=== PATIENT | female | born 1955 | race Caucasian/White ===

== ENCOUNTER 2018-04-11 14:21 | Inpatient (IN) | payer SELFPAY ==
[2018-04-11] MEDS ORDERED: NS 1,000 ML IV ONE (14:42)
[2018-04-11] MEDS ORDERED: ASPIRIN 81 MG CHEWABLE TAB PO ONE (14:42)
--- NOTE | 2018-04-11 14:47 | EDPHY ---
H & P Stated Complaint: dizziness, chest and throat tightness, Source: Patient Exam Limitations: No limitations - Medical/Surgical History Other PMH: pacemaker for bradycardia, - Family History Significant Family History: No pertinent family hx - Social History Alcohol Use: None Drug Use: None Time Seen by Provider: 04/11/18 14:30 HPI/ROS: This patient describes chest tightness currently 7/10 in intensity present for the past hour. Symptoms came on at rest. This is substernal location nonradiating associated with mild dyspnea. She also describes some intermittent heart palpitations and lightheadedness. She explains that she flew here from [place] 2 days ago while in the airport had a brief episode of chest tightness lightheadedness that brought her to her knees but then resolved without intervention. She had fleeting episodes of similar symptoms without lightheadedness until today when she had recurrent episode of presyncopal symptoms associated with heart palpitations and chest discomfort. 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 She contacted her gypsum roofer in [place] who was able apparently to interrogate the pacer & did notice any obvious malfunction but raised up potential concern over 1 of the leads per patient. Her gypsum roofer instructed the patient to come to the ED for evaluation. She arrived by private car. ROS: Constitutional: No fevers or chills HEENT: No URI symptoms Pulmonary: Dyspnea. No cough. Cardiovascular: Lightheadedness with no leg swelling GI: No abdominal pain. No nausea vomiting. Endocrine: No diaphoresis Neuro: No focal symptoms 10 point review of symptoms is performed and otherwise negative with exception of pertinent positives and negatives listed in HPI and ROS (Marcos Jackman) - Physical Exam Exam: General Appearance: Alert, no distress. Eyes: Pupils equal and round no pallor or injection. ENT, Mouth: Mucous membranes moist. Respiratory: There are no retractions, lungs are clear to auscultation. Cardiovascular: Irregularly irregular initially with no murmur gallop or rub appreciated. No peripheral edema Gastrointestinal: Abdomen is soft and nontender, no masses, bowel sounds normal. Neurological: GCS 15. Skin: Warm and dry, no rashes. Musculoskeletal: Neck is supple nontender. Extremities are symmetrical, full range of motion. Psychiatric: Mood and affect normal DIFFERENTIAL DIAGNOSIS: After history and physical exam differential diagnosis was considered for pacer dysfunction, myocardial ischemia, metabolic abnormality , pulmonary embolism (Marcos Jackman) Constitutional: Initial Vital Signs Temperature (C) 36.6 C 04/11/18 14:30 Heart Rate 60 04/11/18 14:30 Respiratory Rate 16 04/11/18 14:30 Blood Pressure 105/67 04/11/18 14:30 O2 Delivery Mode Room Air Allergies/Adverse Reactions: No Known Allergies Allergy (Unverified 04/11/18 14:42) Home Medications: Medication Instructions Recorded NK [No Known Home Meds] 04/11/18 Medical Decision Making - Diagnostics EKG Interpretation: 12 lead EKG performed at 2:40 p.m. Indication chest pain Av paced at a rate of 51 Intervals: P R of 296, QRS of 140, QTC of 414 [place]: QRS of 24, T of 41 degrees No further interpretation attempted due to pacer Overall assessment: AV dual paced with capture (Marcos Jackman) Imaging Results: Imaging Impressions Chest X-Ray 04/11/18 14:54 Impression: No acute findings in the chest. ED Course/Re-evaluation: IV, monitor, aspirin, normal saline bolus, 1 supple nitroglycerin I paged the hospitalist at 2:55 p.m. With plan to admit this patient to PCU to rule out pacer dysfunction, NM or other currently labs are all pending. Chest x -ray is also pending to check pacer wires. I spoke with Marcela Saavedra [facility] emergency physician at 3:00 p.m. Regarding this patient. He will follow up with final labs with plan to admit to [facility]. I counseled the patient regarding this plan she understands and agrees with plan. (Marcos Jackman) I took over care of this patient at 3:00 p.m.. Please see above dictation for further details on her history. The patient had been given sublingual nitroglycerin prior to me assuming care. Her systolic blood pressures had been 100-110. They dropped after nitroglycerin into the mid 60s with a diastolic of 37. She was given a 250-500 cc bolus of fluid. Sublingual nitroglycerin order was canceled. Her blood pressures came back up within about 20 min to baseline at 100-110. Her D-dimer was elevated. She subsequently was sent for CT angiogram of her chest. CT angiogram of chest: No PE but moderate to large pericardial effusion/ hemopericardium. Results were discussed with staff radiologist Dr. Sam Bean. Please see report above for further details. Patient's admission status on transfer to [facility] was changed to an ICU bed. I contacted the admitting hospitalist, Dr. Dr. Montero, I discussed results of CT scan and finding of hemopericardium. He will contact Cardiology for consultation on her arrival to the ICU at [facility]. The patient's blood pressure dipped 1 more time to the upper 60s systolic. It then returned after about 10 min to systolic of 100 and diastolic in the 50s. She has had no change in mental status, no lightheadedness with these drops in blood pressure. The patient has had no further complaint of chest pain while in the emergency department. She received a total of 1.5 L of IV normal saline while in the emergency department. Her CT scan did show some cephalization therefore further IV fluid administration was held. I filled out the appropriate transfer paperwork. I discussed in detail with the patient the results of her blood tests as well as CT angiogram of her chest and her need to be admitted to the ICU. All of her questions were answered. She was transferred in stable condition to the [facility] ICU ALS at 5:20 p.m.. Her remaining emergency department course under my care has been uneventful. (Sanjay Saavedra) - Data Points Laboratory Results: 04/11/18 04/11/18 15:05 15:03 POC Sodium 138 mEq/L mEq/L (135-145) POC Potassium 3.7 mEq/L mEq/L (3.3-5.0) POC Chloride 98.0 mEq/L mEq/L (97-110) POC Total CO2 24 mEq/L mEq/L (22-31) POC BUN 17 mg/dL mg/dL (7-23) POC Creatinine 0.7 mg/dL mg/dL (0.6-1.0) POC Glucose 156 mg/dL H mg/dL (70-100) POC Calcium 9.5 mg/dL mg/dL (8.5-10.4) POC Troponin I 0.00 ng/mL ng/mL (0.00-0.08) Medications Given: Nitroglycerin (Nitrostat) 0.4 mg SL Q5M PRN PRN Reason: Chest Pain Last Admin: 04/11/18 15:25 Dose: 0.4 mg Discontinued Medications Aspirin (Aspirin) 324 mg PO EDNOW ONE Stop: 04/11/18 14:43 Last Admin: 04/11/18 14:51 Dose: 162 mg Sodium Chloride (Ns) 1,000 mls @ 0 mls/hr IV EDNOW ONE; Wide Open PRN Reason: Protocol Stop: 04/11/18 14:43 Last Admin: 04/11/18 14:50 Dose: 1,000 mls Sodium Chloride (Ns) 500 mls @ 0 mls/hr IV ONCE ONE PRN Reason: Wide Open Stop: 04/11/18 15:44 Last Admin: 04/11/18 15:44 Dose: 500 mls Point of Care Test Results: Chemistry 04/11/18 04/11/18 15:05 15:03 POC Sodium 138 mEq/L mEq/L (135-145) POC Potassium 3.7 mEq/L mEq/L (3.3-5.0) POC Chloride 98.0 mEq/L mEq/L (97-110) POC Total CO2 24 mEq/L mEq/L (22-31) POC BUN 17 mg/dL mg/dL (7-23) POC Creatinine 0.7 mg/dL mg/dL (0.6-1.0) POC Glucose 156 mg/dL H mg/dL (70-100) POC Calcium 9.5 mg/dL mg/dL (8.5-10.4) POC Troponin I 0.00 ng/mL ng/mL (0.00-0.08) Departure - Departure Disposition: [facility] Clinical Impression: Chest pain, Dyspnea, Hemopericardium, Hypotension Condition: Fair
[2018-04-11] MEDS ORDERED: NITROGLYCERIN 0.4 MG BTL SL PRN (14:53)
--- NOTE | 2018-04-11 15:05 | CPEKG ---
Test Reason : OPEN Blood Pressure : / mmHG Vent. Rate : 051 BPM Atrial Rate : 108 BPM P-R Int : 296 ms QRS Dur : 140 ms QT Int : 449 ms P-R-T Axes : 000 024 041 degrees QTc Int : 414 ms A-V dual-paced rhythm with some inhibition Confirmed by Marcos Jackman ([id number]) on 04/11/2018 3:05:14 PM Referred By: Confirmed By:Marcos Jackman
[2018-04-11] MEDS ORDERED: NS 500 ML IV ONE (15:43)
--- NOTE | 2018-04-11 15:47 | PDGENHP ---
History and Physical History and Physical: CC: Chest pain and shortness of breath HISTORY: This patient who has had a pacemaker since age 34 for AV node block was traveling and in [place] and while there developed onset of chest pain and a near syncopal episode. The 1st thing happen was 3 days ago when she was working out at a gym using await machine. She did in exercise where she pulled down and across her chest with her right arm, and immediately following this felt some vague discomfort in her chest that she knew was not right but she does not really recall much detail. She was find that evening but the next morning she woke up and had an ache in her central chest along with symptoms of exertional lightheadedness and exertional dyspnea. This seemed improved through the day but the following day she went to the airport and while going to the airport again had exertional dyspnea and lightheadedness. She was having ongoing ache in her chest as well. This morning she had more of these same symptoms. She says that she did day pacer interrogation through the telephone and heard from the [employer] rep that though her pacer was functioning there was question about 1 of the leads. Because of these ongoing symptoms the patient now comes into the ER. In the ER at the urgent care the patient initially had ongoing symptoms of chest discomfort at rest in stable vital signs. As the patient had ongoing chest discomfort in the ER she was given 1 sublingual nitroglycerin tablet which caused a drop in blood pressure to 63/48. Following this the patient was given IV fluid boluses but has had only partial improvement in her blood pressure since then. A D-dimer was high, a troponin normal and an EKG showing paced rhythm with ventricular paced complexes. She underwent CT scan of the chest which showed no pulmonary emboli or pneumonia, however she did have evidence of what appeared as a hemorrhagic pericardial effusion of moderately large size. She is now transferred from that ER to our ICU and I am seeing her at the bedside. As she arrives here she still can feel a bit of an ache in her chest and she does admit to a bit of a pleuritic pain in the central upper sternal area. She is not short of breath or lightheaded lying here but her blood pressure is still low at 89 systolic. She has had no fevers no cold or flu type symptoms no cough no swelling in the legs. There is no history of any cardiac disease other than the AV block leading to pacemaker at age 34. She has never been a smoker does not use street drugs and does not have a significant family history of vascular disease ROS: A comprehensive 10 system review revealed no other significant findings PAST MEDICAL HISTORY: Pacemaker for AV node block at 8:35 a.m. 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 No history of tobacco street drugs or alcohol MEDICATIONS: Takes no medicines and has no allergies PHYSICAL EXAMINATION: Vital Signs: Initially all vital signs were normal without any fever, but as described above there was severe hypotension after 1 sublingual nitroglycerin, and hypotension persists now Care Support Representative: Paced rhythm Examination: General: alert, oriented, good mentation, relaxed Skin: warm, dry, good color, no rash HEENT: normal Neck: no mass or jvd Resps: relaxed Lungs: clear breath sounds Heart: regular, 1/6 syst murmur at left sternal border Abdomen: soft, nondistended, nontender, +BS, no mass Upper Extremities: normal Lower Extremities: no edema, warm No Bleeding or bruising Neurologic: normal speech/language, 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 There is a pacemaker in place with appropriate lead position I also reviewed the CT scan images of the chest. This does show a large pericardial effusion with contrast leaking into the pericardial space from the right ventricle and it shows what appears to be the right ventricular pacer lead possibly perforating the ventricular wall but the lead tip is at the site of the leak. ECHOCARDIOGRAM: I was present at the bedside along with Dr. Ren during the echocardiogram which confirms a large pericardial effusion, without tamponade but with evidence of the right ventricular lead perforating the right ventricular wall to the pericardial space. Otherwise no particular abnormalities of the myocardium or valves of concern 12 LEAD EKG: I reviewed tracing from the ER today, which shows paced complexes, some AV paced and some ventricular paced. There also appears to be an underlying sinus rhythm which is not conducting and is not concordant with the pacing ASSESSMENT: * acute hemorrhagic pericarditis from perforation of right ventricular pacer lead * symptoms from the above include exertional near-syncope and chest pain along with some dyspnea * hypotension from the above but without tamponade physiology at this point based on echocardiogram * third-degree atrioventricular block with pacemaker placed at age 34, her EKG currently is suggesting that she still has high-grade AV block * absence of significant congestive heart failure at this time other than output failure as above PLANS: * I Have had a long conversation with the patient at the bedside along with Dr. Ren * At this point it would not be safe or worthwhile to trying do a pericardiocentesis. We have recommended to the patient that we proceed with a surgical procedure to perform pericardial window, removal of the pacemaker lead , repair of right ventricular leak. She will also require temporary pacemaker. We have answered the patient's questions in detail and she is in agreement to proceed with this procedure. We are waiting to hear back again from Dr. Hu * NPO * I have ordered coagulation studies and blood type and cross * No medicinal DVT prophylaxis at this time due to her bleeding but will start that up as soon as she is stable for such treatment; will use compression stockings and intermittent compression device I have reviewed the patient's case in detail with Dr. Marcos Jackman, Dr. Garcia Hu,
[2018-04-11] MEDS ORDERED: IOPAMIDOL (ISOVUE 370) 100 ML BTL IV ONE (16:23)
--- NOTE | 2018-04-11 18:20 | PDMN ---
Medical Necessity Medical necessity: MCG M340 syncope presyncope with CP, SOB, and hypotension. pt with AV pacemaker - further monitoring and tx needed.
[2018-04-11 19:13] LABS: PLATELET COUNT 195 10^3/uL (150-400)
[2018-04-11] MEDS ORDERED: NS 1,000 ML IV SCH ×2 (19:15→21:45)
[2018-04-11 19:20] LABS: INR 1.08 (0.83-1.16); PROTIME(PATIENT) 14.2 SEC (12.0-15.0)
[2018-04-11] MEDS ORDERED: EPINEPHrine 1 MG/ML INJ ONE (19:25)
[2018-04-11] MEDS ORDERED: BUPIVACAINE 0.25% 30 ML SDV ONE (19:26)
--- NOTE | 2018-04-11 19:39 | ECHO ---
[email or web address] [address] [address] Main: [phone] Fax: [email or web address] Echocardiogram Name: YADIRA PATEL MR#: [id number] Study Date: 04/11/2018 Study Time: 06:41 PM Date of : 1955 Age: 62 year(s) Height: 152.4 cm (60 in.) Weight: 50.8 kg (112 lb.) BSA: 1.46 m2 Gender: Female Examination: Echo Indication: Acute Hypotension, Chest Pain, Hx of pacemaker Image Quality: Contrast: Requested by: See Montero BP: 89 mmHg/48 mmHg Heart Rate: Rhythm: Sinus tachycardia Indication: Acute Hypotension, Chest Pain, Hx of pacemaker Procedure Staff Musical Instrument Maker: Flaquito Blackburn RDCS Reading Physician: Gregg Ren MD Requesting Provider: Conclusions: Normal global systolic LV function. EF is 72 %. There is no significant mitral valve regurgitation. The aortic valve is normal in appearance and function. Large pericardial effusion. There is evidence of a RV pacemaker wire perforation thru the right venticle. There is a large circumfrential pericardial effusion with no respiratory variation but there is slight RV, RA compression. Measurements: Chambers Valvular Assessment AV/MV Valvular Assessment TV/PV Normal Normal Normal Name Value Range Name Value Range Name Value Range Ao Jayne (MM): 2.9 cm (2.2 cm-3.7 AV Vmax: 1.22 m/s (1 m/s-1.7 cm) m/s) IVSd (2D): 0.7 cm (0.6 cm-1.1 AV maxP mmHg ( - ) cm) LVOT Vmax: 1.25 m/s (0.7 m/s-1.1 LVDd (2D): 3.6 cm (3.9 cm-5.3 m/s) cm) LVDs (2D): 2.1 cm (2.1 cm-4 cm) LVPWd (2D): 0.7 cm ( - ) LVEF (2D): 72 (>=54 %) Continued Measurements: Findings: Left Ventricle: Normal size left ventricle. No LV hypertrophy. Normal global systolic LV function. EF is 72 %. No Patient: YADIRA PATEL Study Date: 04/11/2018 Page 1 of 2 06:41 PM regional wall motion abnormality. Right Ventricle: Normal size right ventricle. Normal RV function. There is a pacemaker lead noted in the right ventricle. Left Atrium: The left atrium is normal in size. Right Atrium: The right atrium is normal in size. Mitral Valve: The mitral valve is normal in appearance and function. There is no significant mitral valve regurgitation. Aortic Valve: The aortic valve is normal in appearance and function. Tricuspid Valve: The tricuspid valve is normal in appearance and function. Pulmonic Valve: The pulmonic valve is normal in appearance and function. Aorta: The aorta is normal. Pericardium: Large pericardial effusion. There is evidence of a RV pacemaker wire perforation thru the right venticle. There is a large circumfrential pericardial effusion with no respiratory variation but there is slight RV, RA compression. (No Signature Object) Patient: YADIRA PATEL Study Date: 04/11/2018 Page 2 of 2 06:41 PM [id number]
[2018-04-11] MEDS ORDERED: MIDAZOLAM 2 MG/2 ML VIAL IVP ONE (19:43)
--- NOTE | 2018-04-11 19:43 | PDANEPAE ---
ANE History of Present Illness 62 yo for pericardial window ANE Past Medical History - Cardiovascular History Hx Hypertension: No Hx Arrhythmias: Yes Hx Chest Pain: No Hx Coronary Artery / Peripheral Vascular Disease: No Hx CHF / Valvular Disease: No Hx Palpitations: No - Pulmonary History Hx COPD: No Hx Asthma/Reactive Airway Disease: No - Endocrine History Hx Diabetes: No ANE Review of Systems Review of Systems: - Exercise capacity METS (RN): 4 METS ANE Patient History - Allergies Allergies/Adverse Reactions: No Known Allergies Allergy (Unverified 04/11/18 14:42) - Home Medications Home Medications: NK [No Known Home Meds] 04/11/18 [Last Taken Unknown] - NPO status NPO Status: no food or drink >8 hours - Anes Hx Anes Hx: no prior problems - Smoking Hx Smoking Status: Never smoked - Alcohol Use Alcohol Use: None ANE Labs/Vital Signs - Labs Result Diagrams: 04/11/18 19:05 04/11/18 19:05 - Vital Signs Blood Pressure: 100/64 Heart Rate: 86 Respiratory Rate: 16 O2 Sat (%): 95 Height: 5 ft 1 in Weight: 49.895 kg ANE Physical Exam - Airway Mallampati Score: Class 2 - Pulmonary Pulmonary: no respiratory distress - Cardiovascular Cardiovascular: regular rate and rhythym - ASA Status ASA Status: II, E ANE Anesthesia Plan Anesthesia Plan: general endotracheal anesthesia Lines/Monitors: central line
[2018-04-11] MEDS ORDERED: REMIFENTANIL HCL 1 MG VIAL ONE (19:54)
[2018-04-11] MEDS ORDERED: fentaNYL 100 MCG/2 ML INJ ONE (19:55)
[2018-04-11] MEDS ORDERED: PROPOFOL/EMULSION 500 MG/50 ML BOTTLE IV ONE (19:55)
[2018-04-11] MEDS: ceFAZolin 2 GM/DEXTROSE 100 ML IV SCH (20:09)
[2018-04-11] MEDS ORDERED: FAMOTIDINE 20 MG/NACL 50 ML IV SCH (21:00)
[2018-04-11] MEDS ORDERED: BACITRACIN 50,000 UNITS/10 ML SYR IRR ONE (21:01)
[2018-04-11] MEDS ORDERED: SUGAMMADEX SODIUM 200 MG/2 ML VIAL IVP ONE (21:22)
[2018-04-11] MEDS ORDERED: ONDANSETRON DISINTEGRATING 4 MG TAB PO PRN (21:34)
[2018-04-11] MEDS ORDERED: SODIUM CL NASAL 45 ML BTL EACHNARE PRN (21:34)
[2018-04-11] MEDS ORDERED: ALBUMIN 5% 250 ML IV PRN (21:34)
[2018-04-11] MEDS ORDERED: POLYETHYLENE GLYCOL 3350 17 GM PKT PO PRN (21:34)
[2018-04-11] MEDS ORDERED: CEPACOL LOZENGE PO PRN (21:34)
[2018-04-11] MEDS ORDERED: MAGNESIUM HYDROXIDE 30 ML UDCUP PO PRN (21:34)
[2018-04-11] MEDS ORDERED: ONDANSETRON 4 MG/2 ML VIAL IVP PRN (21:34)
[2018-04-11] MEDS ORDERED: MEPERIDINE 25 MG/0.5 ML AMP IVP PRN (21:34)
[2018-04-11] MEDS ORDERED: traMADol 50 MG TAB PO PRN (21:47)
[2018-04-11] MEDS ORDERED: oxyCODONE IR 5 MG TAB PO PRN (21:47)
--- NOTE | 2018-04-11 22:12 | GCON ---
CHIEF COMPLAINT: Chest pain, shortness of breath, palpitations. HISTORY OF PRESENT ILLNESS: This is a 62-year-old female with a history of sick sinus syndrome statu s post pacemaker, permanent pacemaker placement 3 years ago in [place], [place]. The patient was ap parently in [place] 3 days ago where she was working out and felt a pop in her chest. Since that epis ode, she was having increasing shortness of breath and chest pain. She flew to [place] for a visit a nd indicated this morning feeling much worse, with lightheaded spells. She came to the emergency [facility] where initially, given her symptoms, she was administered nitroglycerin sublingual. This actually dropped her pressure significantly from a baseline of 100 systolic down to 70. The patient was given IV fluids and a stat CT was performed. The CT showed what appeared to be a large pericardial effusi on with questionable migration of the RV pacing lead into the pericardial space. The patient was tra nsferred to [facility] ICU, where further evaluation was performed. The patient had a stat echo performed which showed what appeared to be tenting of the RV apex with the RV pacer lead wi th what appeared to be hematoma formation around the apical segment of the RV apex. There was approx imately 2.5 cm of pericardial effusion circumferentially. There was RV collapse but no respiratory v ariation in mitral inflow patterns. Of note, the patient's heart rate had increased significantly fr om her initial admission from the mid 60s to the mid 90s. Blood pressure had remained low in the mid 90s systolic. PAST MEDICAL HISTORY: Significant for sick sinus syndrome, status post permanent pacemaker placement . HOME MEDICATIONS: None. SOCIAL HISTORY: Occasional alcohol use. No . FAMILY HISTORY: Noncontributory. REVIEW OF SYSTEMS: The patient current denies any visual changes. No headache. No throat pain. No neck pain. No dizziness. She does have 3/10 dull substernal chest discomfort. No shortness of melissa ath at rest. No upper extremity pain. No abdominal pain. No lower extremity pain. No lower extrem ity edema. No neurologic deficits. PHYSICAL EXAMINATION: VITAL SIGNS: Afebrile at 96. Blood pressure is currently 90/50 with a heart rate of 94, respirations 12, satting 95% on room air. HEENT: Pupils equal, round, and reactive to light and accommodation. Extraocular movements are inta ct. CARDIOVASCULAR: Regular rate and rhythm. S1, S2, with diminished heart sounds. LUNGS: Clear t o auscultation bilaterally. ABDOMEN: Soft and tender with guarding. EXTREMITIES: There is no club cody, no cyanosis, no edema. NEUROLOGIC: The patient is alert and oriented x3. LABORATORY VALUES: Currently show a white count of 11,000, hemoglobin 10.9, hematocrit 31, platelet count of 195. INR is 1.02. Troponins are negative x1 set. Sodium is 135, potassium 4.4, chloride 1 03, bicarb 24, BUN 19, creatinine 0.7. Echocardiogram shows circumferential pericardial effusion wit h evidence of RV apical perforation with the RV lead. ASSESSMENT AND PLAN: Chest pain/palpitations. At this time, it appears the patient's pain and sympt oms are coming from a pericardial effusion/pericarditis, most likely from right ventricular lead migr ation through the right ventricular apical segment. I have contacted Dr. Jeramie Ferreira from cardiothor acic surgery, discussed the case with him. We feel that, given the fact that the inciting event most likely is the migration of the right ventricular pacing lead through the right ventricular apical se gment, the patient would need a surgical exploration and removal of her right ventricular pacing lead and repair of her right ventricular apex with drainage of fluid. I have explained to the patient ab out the current clinical situation, and she is agreeable to discuss with Dr. Ferreira, who will be raghavendra vaughn in shortly. We will follow closely. Thank you for the consultation. /[id number]/MODL
[2018-04-11] MEDS: ACETAMINOPHEN 500 MG TAB PO SCH (22:52)
[2018-04-11] MEDS: KETOROLAC 15 MG/1 ML SDV IVP SCH (22:52)
[2018-04-12] MEDS: KETOROLAC 15 MG/1 ML SDV IVP SCH ×3 (00:38→17:31)
[2018-04-12] MEDS: ceFAZolin 2 GM/DEXTROSE 100 ML IV SCH ×2 (03:41→12:45)
[2018-04-12] MEDS: ACETAMINOPHEN 500 MG TAB PO SCH ×5 (05:57→22:13)
[2018-04-12 06:04] LABS: PLATELET COUNT 203 10^3/uL (150-400)
--- NOTE | 2018-04-12 06:13 | GOP ---
DATE OF OPERATION: 04/11/2018 SURGEON: Jeramie Ferreira DO POSTING MACHINE OPERATOR: Raimundo. ANESTHESIA: [facility]. PREOPERATIVE DIAGNOSIS: Pericardial tamponade secondary to likely chronic effusion from temporary le ad perforation. POSTOPERATIVE DIAGNOSIS: Pericardial tamponade secondary to likely chronic effusion from temporary l ead perforation. PROCEDURE PERFORMED: 1. Subxiphoid pericardial window with drainage of serosanguineous fluid. 2. Extraction of left ventricular lead. 3. Placement of epicardial permanent pacemaker lead with revision of pacemaker pocket and reconnecti on. FINDINGS: INDICATIONS: The patient presented hypotensive with a large pericardial effusion with evidence of le ad perforation in the apex. She was hypotensive on admission, responded to aggressive IV fluid chall enge. She was urgently taken to the operating room after consent was obtained and reviewed with her son by phone. DESCRIPTION OF PROCEDURE: She was prepped and draped in sterile classical manner. A subxiphoid wind ow was performed. Approximately 400 cc of serosanguineous fluid was removed without clot. We then p laced epicardial pacemaker temporary leads and tunneled the pacemaker lead to the left infraclavicula r pacemaker pocket. The LV lead was disconnected from the permanent pacemaker, and the new lead was connected. We tested thresholds, and the mAs were around 2, based on just a temporary pacemaker box. The pockets were irrigated with antibiotics. The pacemaker pocket was then closed after extracting the LV lead with gentle traction and no evidence of further bleeding in the pericardium. All wounds were closed. A single drain was placed in the pericardium. The patient was returned to the recover y room in stable condition. /[id number]/MODL
--- NOTE | 2018-04-12 08:02 | PDCARPN ---
Cardiology Progress Note Chief Complaint: CP Assessment/Plan: Assessment: CP pericardial effusion ? PPM perforation Plan: 04/12/18 07:59 Pt looks well Post op from pericardial window/epicardial lead placement Interrogate PPM today further plan per CT surgery hopefully d/c soon Subjective: feels better Reviewed/Discussed With: multidisciplinary team Time Spent with Patient: greater than 25 minutes Time Spent with Patient: Greater than 25 minutes spent on this patients care, greater than 50% of time spent counseling, educating, and coordinating care regarding the above mentioned plan. Objective: Vital Signs (8 Hrs) Temp Pulse Resp BP Pulse Ox 04/12/18 06:00 100 16 117/70 97 04/12/18 05:00 88 16 110/62 100 04/12/18 04:00 36.7 C 88 16 119/70 99 04/12/18 03:00 96 14 115/67 100 04/12/18 02:00 91 15 109/64 99 04/12/18 01:00 85 14 115/65 99 04/12/18 00:00 89 16 122/65 H 99 Intake/Output (24 Hrs) 04/11/18 04/12/18 04/13/18 05:59 05:59 05:59 Intake Total 2790 Output Total 750 Balance 2040 Intake: Oral (ml) 400 IV Intake (ml) 890 IV Infused (ml) 1500 Output: Urine (ml) 700 Bedpan 700 [place] Drain Output (ml) 50 Sternal John Aguilar 50 Other: Weight 49.895 kg 51.2 kg Number of Voids 1 Number of Bowel Movements 1 Number of Emesis 1 Occurrences Result Diagrams: 04/12/18 05:45 04/12/18 05:45 - Physical Exam Constitutional: healthy appearing Eyes: PERRL Ears, Nose, Mouth, Throat: moist mucous membranes Cardiovascular: regular rate and rhythm Peripheral Pulses: 1+: femoral (R), femoral (L) Respiratory: clear to auscultate bilat Gastrointestinal: normoactive bowel sounds Genitourinary: no suprapubic tenderness Skin: no rashes Musculoskeletal: no muscular tenderness Neurologic: AAOx3 Psychiatric: cooperative Lymph, Heme, Immunologic: no lymphadenopathy ICD10 Worksheet Patient Problems: Problems Problem Status Onset Cardiac/pericardial tamponade Acute Chest pain Acute Dyspnea Acute Hemopericardium Acute Hypotension Acute S/P pericardial window creation Acute ~04/11/18 s/p epicardial lead placement Acute ~04/11/18 Presence of cardiac pacemaker Chronic
--- NOTE | 2018-04-12 09:46 | SOAPPROG ---
SOAP Progress Note Assessment/Plan: Assessment: POD#1 subxiphoid pericardial window, removal transvenous RV lead, replacement with RV epicardial ld tunneled/connected to existing PPM Sx large pericardial effusion - with early tamponade physiology, secondary to transvenous RV lead perforation. Approx 400 ml of defibrinated blood evacuated by subxiphoid window. No evidence active bleeding. Lead extracted and replaced with a new epicardial lead. Hemodynamically stable overnight. No sig CTOP. Normal epicardial lead and pacer function verified by [employer] rep. this am. Plan: TCPW removed. Drain to be removed later this am. Tx to PCU. F/U Echo tomorrow. Dispo - Home without services tomorrow. 04/12/18 09:41 Subjective: Feels well overall. (From out of town) with lots of travel planned in next few weeks and anxious about etiology and recurrence of fluid. Would feel more comfortable if negative echo after drain removal. Requests 1 more day of monitoring. Objective: Vital Signs Temp Pulse Resp BP Pulse Ox 36.7 C 100 16 117/70 97 04/12/18 04:00 04/12/18 06:00 04/12/18 06:00 04/12/18 06:00 04/12/18 06:00 Laboratory Results 04/12/18 05:45 04/12/18 05:45 04/11/18 04/12/18 04/13/18 05:59 05:59 05:59 Intake Total 2790 Output Total 750 Balance 2040 PT 14.2 SEC (12.0-15.0) 04/11/18 19:05 INR 1.08 (0.83-1.16) 04/11/18 19:05 Paced rhythm. No dysrhythmias. No hypotension. Min CTOP. Nl renal fx. H/H stable. Physical Exam - Physical Exam General Appearance: alert, no apparent distress Respiratory: lungs clear Cardiac/Chest: regular rate, rhythm, other (Subxiphoid and pacer incisions CDI; pacer pocket soft, flat. Vwire removed without difficulty. Jose drain to bulb suction, mostly serous drainage.) Abdomen: non-tender, soft Skin: warm/dry Extremities: other (no visible edema) ICD10 Worksheet Patient Problems: Problems Problem Status Onset Cardiac/pericardial tamponade Acute Chest pain Acute Dyspnea Acute Hemopericardium Acute Hypotension Acute S/P pericardial window creation Acute ~04/11/18 s/p epicardial lead placement Acute ~04/11/18 Presence of cardiac pacemaker Chronic
--- NOTE | 2018-04-12 10:42 | POSTANESTH ---
Post Anesthetic Evaluation Cardiovascular Status: Normal, Stable Respiratory Status: Normal, Stable Level of Consciousness/Mental Status: Can Participate in Eval Pain Control: Adequate, Prn Tx Ordered Nausea/Vomiting Control: Adequate, Prn Tx Ordered Complications Possibly Related to Anesthesia: None Noted
[2018-04-12] MEDS: SENNOSIDES/DOCUSATE SODIUM TAB PO SCH ×2 (11:01→11:07)
[2018-04-12] MEDS: PANTOPRAZOLE SODIUM 40 MG TAB PO SCH ×2 (11:01→11:07)
[2018-04-12] MEDS ORDERED: HEPARIN 5,000 UNIT/0.5 ML INJ SC SCH (14:00)
--- NOTE | 2018-04-12 15:23 | HOSPPROG ---
Hospitalist Progress Note Assessment/Plan: Subjective Follow-up on hemorrhagic pericardial effusion. Overall patient states that she is feeling reasonably well after surgery. No complaints of chest pain and difficulty breathing. No lightheadedness either. She does not have any abdominal pain or specifically right upper quadrant pain. Objective Vitals as detailed below Exam General-awake alert conversant no acute distress, sitting in a chair at the bedside Heart-regular rate and rhythm no murmurs Lungs-Clear to auscultation with normal respiratory effort Abdomen-soft nontender nondistended normal bowel sounds -no Martinez catheter in place Extremities-no significant pitting edema or calf pain with palpation Skin-no concerning skin rashes noted Labs as detailed Assessment and plan Hemorrhagic pericardial effusion-patient is status post creation of pericardial window and revision of line placement. Overall appears stable postoperatively. Continue per cardiothoracic surgery recommendations. Hypotension-improved with stable blood pressures today. Transaminitis-no abdominal pain. Likely related to effusion. Reassess in the morning. History of third-degree AV block-indication for pacemaker placement inpatient. DVT prophylaxis-low risk as patient is mobile at this point time. No heparin or Lovenox in light of bleeding concern. Disposition-possibly discharge from the hospital next 1-2 days if continued stability. Objective: Vital Signs Temp Pulse Resp BP Pulse Ox 37.2 C 86 18 118/85 H 92 04/12/18 14:22 04/12/18 14:22 04/12/18 14:22 04/12/18 14:22 04/12/18 14:22 Laboratory Results 04/12/18 05:45 04/12/18 05:45 04/11/18 04/12/18 04/13/18 05:59 05:59 05:59 Intake Total 2790 Output Total 750 Balance 2040 PT 14.2 SEC (12.0-15.0) 04/11/18 19:05 INR 1.08 (0.83-1.16) 04/11/18 19:05 ICD10 Worksheet Patient Problems: Problems Problem Status Onset Cardiac/pericardial tamponade Acute Chest pain Acute Dyspnea Acute Hemopericardium Acute Hypotension Acute S/P pericardial window creation Acute ~04/11/18 s/p epicardial lead placement Acute ~04/11/18 Presence of cardiac pacemaker Chronic
--- NOTE | 2018-04-12 20:10 | CPEKG ---
Test Reason : OPEN Blood Pressure : / mmHG Vent. Rate : 081 BPM Atrial Rate : 081 BPM P-R Int : 240 ms QRS Dur : 131 ms QT Int : 411 ms P-R-T Axes : 063 -52 108 degrees QTc Int : 477 ms Atrial-sensed ventricular-paced complexes Prolonged AK interval Left bundle branch block Inferior infarct, acute Lateral leads are also involved Confirmed by Steve Hamilton ([id number]) on 04/12/2018 8:10:17 PM Referred By: Confirmed By:Steve Hamilton
[2018-04-12] MEDS ORDERED: SENNOSIDES/DOCUSATE SODIUM TAB PO PRN (21:00)
[2018-04-13 04:30] LABS: PLATELET COUNT 237 10^3/uL (150-400)
[2018-04-13] MEDS: ACETAMINOPHEN 500 MG TAB PO SCH ×3 (07:55→14:59)
--- NOTE | 2018-04-13 08:33 | SOAPPROG ---
SOAP Progress Note Assessment/Plan: Assessment: POD#2 emergent subxiphoid pericardial window, removal transvenous RV lead, replacement with RV epicardial ld tunneled/connected to existing PPM Sx large pericardial effusion - with early tamponade physiology, secondary to transvenous RV lead perforation. Approx 400 ml of defibrinated blood evacuated by subxiphoid window. No evidence active bleeding. Lead extracted and replaced with a new epicardial lead. Stable early postop course. Normal epicardial lead and pacer function verified by [employer] rep. Drain out. F/U echo pending. Plan: Await echo. Dispo - Home today or as per primary team. CV surgery signing off. Instructions re wound care, activity and follow up reviewed. 04/13/18 08:30 Subjective: Feels well. Ambulating with ease. No acute concerns. 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 BP ok. RA sats ok. Labs as expected. LFTs normalizing. Physical Exam - Physical Exam General Appearance: alert, no apparent distress Respiratory: lungs clear (grossly) Cardiac/Chest: regular rate, rhythm, other (Pacer, subxiphoid, and drain site CDI; pacer pocket remains soft, flat) Abdomen: non-tender, soft Skin: warm/dry Extremities: other (no visible edema) ICD10 Worksheet Patient Problems: Problems Problem Status Onset Cardiac/pericardial tamponade Acute Chest pain Acute Dyspnea Acute Hemopericardium Acute Hypotension Acute S/P pericardial window creation Acute ~04/11/18 s/p epicardial lead placement Acute ~04/11/18 Presence of cardiac pacemaker Chronic
--- NOTE | 2018-04-13 10:45 | ECHO ---
[email or web address] [address] [address] Main: [phone] Fax: Transthoracic Echocardiogram Name: YADIRA PATEL MR#: [id number] Study Date: 04/13/2018 Study Time: 09:52 AM Date of : 1955 Age: 62 year(s) Height: 152.4 cm (60 in.) Weight: 50.8 kg (112 lb.) BSA: 1.46 m2 Gender: Female Examination: Limited Echo Indication: Post Pacemaker lead revision Image Quality: Contrast: Requested by: Kajal Eubanks BP: 110 mmHg/69 mmHg Heart Rate: Rhythm: Pacemaker rhythm Indication: Post Pacemaker lead revision Procedure Staff Paper Rewinder: Flaquito Blackburn RDCS Reading Physician: Tom Tirado MD Requesting Provider: Conclusions: Normal size left ventricle. Normal global systolic LV function. EF is 70 %. There is paradoxic septal motion suggestive of bundle branch block, paced cardiac rhythm, or prior cardiac surgery. There is a pacemaker lead noted in the right ventricle. No pericardial effusion. No pleural effusion. There are no significant valvular abnormalities. The rhythm is ventricularly paced. There is resolution of the previously noted large pericardial effusion. Measurements: Chambers Valvular Assessment AV/MV Valvular Assessment TV/PV Normal Normal Normal Name Value Range Name Value Range Name Value Range IVSd (2D): 0.8 cm (0.6 cm-1.1 TR Vmax: 2.21 mm/s ( - ) cm) TR PGmax: 20 mmHg ( - ) LVDd (2D): 3.7 cm (3.9 cm-5.3 syst. PAP: 25 mmHg ( - ) cm) LVDs (2D): 2.3 cm (2.1 cm-4 cm) LVPWd (2D): 0.9 cm ( - ) LVEF (2D): 70 (>=54 %) Continued Measurements: Valvular Assessment TV/PV Name Value Patient: YADIRA PATEL Study Date: 04/13/2018 Page 1 of 2 09:52 AM CVP (est.): 5 mmHg Findings: Left Ventricle: Normal size left ventricle. Normal global systolic LV function. EF is 70 %. There is paradoxic septal motion suggestive of bundle branch block, paced cardiac rhythm, or prior cardiac surgery. Right Ventricle: There is a pacemaker lead noted in the right ventricle. Left Atrium: The left atrium is normal in size. Right Atrium: The right atrium is normal in size. Mitral Valve: The mitral valve is normal in appearance and function. Aortic Valve: The aortic valve is normal in appearance and function. Aorta: The aorta is normal. Pericardium: No pericardial effusion. No pleural effusion. (No Signature Object) Patient: YADIRA PATEL Study Date: 04/13/2018 Page 2 of 2 09:52 AM [id number]
[2018-04-13 12:37] VITALS: BP 120/76
--- NOTE | 2018-04-13 14:02 | PDDCSUM ---
Discharge Summary Discharge Summary: DISCHARGE DIAGNOSES: * acute hemo pericardium * perforation of right ventricle by right ventricular pacer lead * hypotension and near-syncope and chest pain due to the above CONSULTANTS: Dr. Garcia Hu and Dr. Ren PROCEDURES: Placement of a temporary percutaneous pacing lead Surgical pericardial window placement, removal of right ventricular pacer lead, repair of right ventricular injury, placement of new epicardial pacer lead with access through the pericardium and through her original pacemaker insertion site HOSPITAL COURSE SUMMARY: This patient who had a pacemaker placed for high-grade AV block at 8:35 a.m. Came into the hospital at this time with chest pain shortness of breath and near -syncope. She became hypotensive in the ER. She is found to have hemopericardium and right pacemaker lead perforation of the right ventricular wall. She was taken emergently to the operating room the night of admission where she had pericardial window placement, removal of right ventricular lead and replacement with a new epicardial lead, and repair right ventricular wall. The surgical procedure was uncomplicated, and she had no other difficulties during her hospital stay. At this point she is up walking in the hallways well , not short of breath or lightheaded, has normal vital signs no signs of infection or bleeding or vascular complications. Her pacemaker has been interrogated and the new epicardial lead appears to be working well. She has 100% pacer dependent at this time. She is felt stable for discharge to home PENDING TEST RESULTS: None MEDICATION CHANGES: Is recommended that she take aspirin for her upcoming flight back to [place] on the day of the flight and for several days thereafter FOLLOW-UP PLAN: At [facility] in 5 days She is given specific instructions in terms of activity restrictions, wound management, warning signs of complications at Greater than 35 minutes bedside and care coordination time today
--- NOTE | 2018-04-13 15:19 | ASMTCMCOM ---
CM Note CM Note Notes: Case Management Chart Review for Discharge Support: Patient is 62 year old female visiting from [place], admitted for shortness of breath. She has a history of sick sinus syndrome s/p pacemaker placement 3 years ago. Patient treated for pericardial effusion & underwent lead extraction and replacement. CM met with patient, will be discharging independent today, states someone will pick her up and she will stay at an [facility] Bn[employer] for a few days to rest and then return home. CM available to support if any further needs arise. Date Signed: 04/13/2018 03:18 PM Electronically Signed By:Raeann Vines
== END 2018-04-13 15:40 | disposition home or self-care (01) | DRG 271 ==
LOC: CED 14:21 → CEDHOLD 15:12 → OBSVTOIN 15:12 → F2N 17:58 → F2W 04-12 14:05
PROVIDERS: ADMIT Internal Medicine; ATTEND Internal Medicine
PROC: 02HL0JZ Insertion of Pacemaker Lead into Left Ventricle, Open Approach (ICD-10-PCS; principal; 2018-04-11 20:00)
PROC: 0W9D0ZZ Drainage of Pericardial Cavity, Open Approach (ICD-10-PCS; principal; 2018-04-11 20:00)
PROC: 02PA0MZ Removal of Cardiac Lead from Heart, Open Approach (ICD-10-PCS; principal; 2018-04-11 20:00)
DX: S26.09XA Other injury of heart with hemopericardium, initial encounter (principal); T82.190A Other mechanical complication of cardiac electrode, initial encounter; I44.2 Atrioventricular block, complete; E86.9 Volume depletion, unspecified; X50.0XXA Overexertion from strenuous movement or load, initial encounter
CPT/HCPCS: 71045-PO; 71275-PO; 80048-PO; 80076-PO; 84484-PO; 97161-GP; 97165-GO; C1898; J0171; J0690; J1885; J2704; J3010; Q9967